=== PATIENT | female | born 1975 | race African-American/Black ===

== ENCOUNTER 2020-11-21 09:28 | Inpatient (IN) | payer MEDICAID, OTHER ==
[~2020-11-21] VITALS: Ht 160 cm; Wt 79.8 kg
[2020-11-21] MEDS ORDERED: ONDANSETRON HCL 4MG/2ML INJ IV STA (09:38)
[2020-11-21] MEDS ORDERED: MORPHINE SULFATE 4 MG/ML CPJ (NOT FOR IM USE) IV ONE ×2 (09:45→12:00)
[2020-11-21 09:59] LABS: BASOPHILS % 0.9 % (0.0-2.0); EOSINOPHILS % 5.6 % (0.0-5.0); HEMATOCRIT. 44.8 % (36.0-48.0); HEMOGLOBIN. 15.3 g/dL (12.0-16.0); LYMPHOCYTES % 19.3 % (20.0-50.0); MEAN CORPUSCULAR HEMOGLOBIN 32.4 pg (28.0-32.0); MEAN PLATELET VOLUME 9.5 fl (7.4-10.4); MONOCYTES % 8.5 % (2.0-8.0); NEUTROPHILS % 65.7 % (40.0-76.0); PLATELET 224 x1000/uL (130-400); RED BLOOD CELL COUNT 4.71 mill/uL (4.2-5.4); RED CELL DISTRIBUTION WIDTH 13.9 % (11.6-14.6)
[2020-11-21 10:06] LABS: CHLORIDE 101 mEq/L (98-107)
[2020-11-21 10:09] LABS: INR 1.1; PROTHROMBIN TIME 11.3 sec (9.6-11.0)
[2020-11-21 10:44] LABS: HCG SCREEN NEGATIVE
[2020-11-21] MEDS ORDERED: MORPHINE SULFATE 2 MG/ML CPJ (NOT FOR IM USE) IV PRN (13:00)
[2020-11-21] MEDS ORDERED: ONDANSETRON HCL 4MG/2ML INJ IV PRN (13:00)
[2020-11-21] MEDS ORDERED: POTASSIUM CHLORIDE 20MEQ TABLET SR PO SCH (13:00)
[2020-11-21] MEDS: SODIUM CHLORIDE 0.9% 1,000 ML IV SCH ×2 (13:09→22:23)
[2020-11-21 14:16] LABS: CLARITY URINE CLEAR (CLEAR); COLOR URINE YELLOW (YELLOW); KETONES URINE NEGATIVE (NEGATIVE); LEUKOCYTE ESTERASE URINE TRACE (NEGATIVE); NITRITE URINE NEGATIVE (NEGATIVE); OCCULT BLOOD URINE NEGATIVE (NEGATIVE); PROTEIN URINE NEGATIVE (NEGATIVE); SPECIFIC GRAVITY URINE 1.009 (1.005-1.030)
[2020-11-21 19:13] VITALS: BP 122/79
[2020-11-21 19:30] VITALS: BP 100/60
[2020-11-21] MEDS ORDERED: DEXTROSE 50% WATER 50ML SYRINGE IV PRN (19:30)
[2020-11-21] MEDS ORDERED: LORAZEPAM 2MG/ML CPJ IV PRN (19:30)
[2020-11-21 20:00] VITALS: BP 100/60
[2020-11-21] MEDS ORDERED: INSULIN LISPRO 100 UNITS/ML SUBCUT SCH (21:00)
[2020-11-21] MEDS ORDERED: BLOOD SUGAR DIAGNOSTIC STRIP TEST SCH (21:00)
[2020-11-21] MEDS ORDERED: CHLORDIAZEPOXIDE 25MG CAPSULE PO SCH (22:00)
[2020-11-21] MEDS ORDERED: TOPUD MT (23:03)
[2020-11-21] MEDS ORDERED: TRAZ150T78 PO (23:03)
[2020-11-21] MEDS ORDERED: ARIP30TA2 MT (23:03)
[2020-11-21] MEDS ORDERED: METF-414 PO (23:03)
[2020-11-22] VITALS: BP 94/51
[2020-11-22 10:47] LABS: *AMPHETAMINES SCREEN URINE NEGATIVE (NEGATIVE); *BARBITURATES SCREEN URINE NEGATIVE (NEGATIVE); *BENZODIAZEPINES SCREEN URINE NEGATIVE (NEGATIVE)
[2020-11-22 10:48] LABS: CANNABINOID URINE SCREEN NEGATIVE (NEGATIVE); METHADONE URINE SCREEN NEGATIVE (NEGATIVE); PHENCYCLIDINE URINE SCREEN NEGATIVE (NEGATIVE)
[2020-11-22 10:54] LABS: *COCAINE SCREEN URINE PRESUMTIVE POSITIVE (NEGATIVE); OPIATES URINE SCREEN PRESUMTIVE POSITIVE (NEGATIVE)
== END 2020-11-22 01:30 | disposition left against medical advice (07) | DRG 282 ==
LOC: ER 09:28 → 6EST 12:16 → EDBEDREQ 12:17 → EDBEDREQTM 12:17 → ENRESERV 16:20 → CANRESERV 16:20 → EDBEDREQSVC 16:24 → ENRESERV 17:39
PROVIDERS: ADMIT Internal Medicine; ATTEND Internal Medicine
DX: K85.90 Acute pancreatitis without necrosis or infection, unspecified (principal); K76.0 Fatty (change of) liver, not elsewhere classified; E87.1 Hypo-osmolality and hyponatremia; E87.6 Hypokalemia; E11.9 Type 2 diabetes mellitus without complications; F10.10 Alcohol abuse, uncomplicated; Z71.41 Alcohol abuse counseling and surveillance of alcoholic
CPT/HCPCS: 36415; 76705; 80053; 80305; 81003; 82962; 83036; 84703; 85025; 93005; 99285; J2270; J2405

== ENCOUNTER 2020-11-22 03:14 | Emergency (ER) | payer MEDICAID ==
[~2020-11-22] VITALS: Ht 160 cm; Wt 80.0 kg
[~2020-11-22 03:14] MED LIST: ARIP30TA2 MT; METF-414 PO; TOPUD MT; TRAZ150T78 PO
[2020-11-22] MEDS ORDERED: SODIUM CHLORIDE 0.9% 1,000 ML IV ONE (04:30)
[2020-11-22 04:59] LABS: BASOPHILS % 0.5 % (0.0-2.0); EOSINOPHILS % 6.9 % (0.0-5.0); HEMOGLOBIN. 12.9 g/dL (12.0-16.0); LYMPHOCYTES % 25.6 % (20.0-50.0); MEAN CORPUSCULAR VOLUME 93.5 fL (81.0-99.0); MEAN PLATELET VOLUME 9.3 fl (7.4-10.4); PLATELET 213 x1000/uL (130-400); RED BLOOD CELL COUNT 4.17 mill/uL (4.2-5.4); RED CELL DISTRIBUTION WIDTH 13.6 % (11.6-14.6)
[2020-11-22 05:08] LABS: CHLORIDE 108 mEq/L (98-107)
[2020-11-22] MEDS ORDERED: MORPHINE SULFATE 2 MG/ML CPJ (NOT FOR IM USE) IV PRN (10:15)
[2020-11-22] MEDS ORDERED: ONDANSETRON HCL 4MG/2ML INJ IV PRN (10:45)
[2020-11-22] MEDS ORDERED: DEXTROSE 50% WATER 50ML SYRINGE IV PRN (13:00)
[2020-11-22] MEDS ORDERED: BLOOD SUGAR DIAGNOSTIC STRIP TEST SCH (13:00)
[2020-11-22] MEDS ORDERED: INSULIN LISPRO 100 UNITS/ML SUBCUT SCH (13:20)
[2020-11-22 16:17] VITALS: BP 136/93
== END 2020-11-22 16:52 | disposition home or self-care (01) ==
LOC: ER 03:14 → CANBEDREQ 16:17 → ER 16:52
DX: K85.90 Acute pancreatitis without necrosis or infection, unspecified (principal); F17.200 Nicotine dependence, unspecified, uncomplicated; E11.9 Type 2 diabetes mellitus without complications
CPT/HCPCS: 36415; 80053; 82962; 83690; 85025; 96361; 96374; 99285; J2270; J7030

== ENCOUNTER 2023-03-05 00:14 | Emergency (ER) | payer SELFPAY ==
[~2023-03-05] VITALS: Ht 160 cm; Wt 67.7 kg
[2023-03-05 00:49] VITALS: BP 128/88; PULSE 92; RESP 16; TEMP 98.6; O2SAT 100
[2023-03-05] MEDS ORDERED: IBUPROFEN 600MG TABLET PO ONE (01:15)
[2023-03-05] MEDS ORDERED: PERM60CR4 TP ×2 (02:03)
[2023-03-05] MEDS ORDERED: IBUP-2029 MT ×2 (02:03)
[2023-03-05] MEDS ORDERED: OFLO5DRO4 EACH EAR ×2 (02:03)
== END 2023-03-05 02:18 | disposition home or self-care (01) ==
LOC: ER 00:40
DX: H61.23 Impacted cerumen, bilateral (principal); L29.9 Pruritus, unspecified; J45.909 Unspecified asthma, uncomplicated; E11.9 Type 2 diabetes mellitus without complications; Z98.890 Other specified postprocedural states
CPT/HCPCS: 99283